=== PATIENT | male | born 1960 | race Caucasian/White ===

== ENCOUNTER → 2017-01-04 | Outpatient (CLI) | payer OTHER ==
[~2017-01-04] VITALS: Ht 182.9 cm; Wt 102.9 kg
[~2017-01-04] MED LIST: APAP500 PO; DICLOFENAC SODI75 MG PO; GRALISE600 MG PO; HYDROCODONE-AP1 EAC6 PO; LISINOPRIL-HCT1 EACH PO; MOBIC7.5 MG PO; SIMVASTATIN40 MG PO; VENLAFAXIN75 MG/1 T2 PO
--- NOTE | ~2017-01-04 | HPC ---
[facility] [address] [place] [address] PAIN MANAGEMENT CONSULTATION Name: CARROL CONNORS Room #: REG COURTNEYJanelle Irby#: [id number] Admission: 01/04/17 Attend Phys: Richardson Hollingsworth DO Discharge: Date of : 62 Report #: [id number] THIS REPORT FOR: //name// CC: Richardson Clement MD DATE OF SERVICE: 01/04/2017 REFERRING PHYSICIAN: Josesito Clement MD CHIEF COMPLAINT: Low back pain, left lower extremity pain and paresthesias. HISTORY OF PRESENT ILLNESS: As you know, the patient is an extremely pleasant 56-year-old male returning in followup visit with recurrent low back pain, left lower extremity pain with paresthesias. The patient is now placing pain score 04/10, states his pain is exacerbated with walking, exacerbates with activities throughout the day. It is constant in nature, aching, numbness and tingling when describing pain. He states pain medications and epidural injections have been successful, most recent provided 50% improvement in overall pain. He has returned today in followup visit requesting to undergo the next in a series of epidural injections to build on success of previous intervention. The patient denies any change in injury or trauma that may have led to recurrence of symptoms. He denies any change in his medical history since our last visit. ALLERGIES: No known drug allergies. CURRENT MEDICATIONS: Tylenol Extra Strength 500 mg 3 times a day, lisinopril/hydrochlorothiazide 10/12.5 mg once a day, diclofenac sodium 75 mg twice a day, venlafaxine 75 mg once a day, simvastatin 40 mg per day. SOCIAL HISTORY: The patient denies tobacco, alcohol, IV or illicit drug use. He is working, not receiving workmen's compensation, unaccompanied today. IMAGING: No new imaging available. PHYSICAL EXAMINATION: VITAL SIGNS: Blood pressure 136/91, pulse 66, respiratory rate 16, unlabored. The patient is 100% on room air, height 6 feet tall, weight 226.8 pounds, BMI calculated 30.8. GENERAL: Well developed, well nourished, well hydrated 56-year-old male appearing stated age, placing current pain score at 4/10. HEENT: Normocephalic, atraumatic. Pupils equal, round, reactive to light. Extraocular muscles are intact. Speech is fluent. EXTREMITIES: Show no clubbing, no cyanosis, no edema. MUSCULOSKELETAL: Lower extremity strength equal and symmetrical 5/5, intact to [address] [address] PAIN MANAGEMENT CONSULTATION Name: CARROL CONNORS Room #: REG [facility].#: [id number] Admission: 01/04/17 Attend Phys: Richardson Hollingsworth DO Discharge: Date of : 62 Report #: [id number] light touch from L1 through S2 dermatomes. Seated straight leg raising negative. Supine straight leg raising positive on the left. GARY's test negative. Muscle bulk and tone equal and symmetrical in lower extremities. ASSESSMENT: 1. Symptomatic lumbar radiculopathy. 2. Spinal stenosis of lumbar spine. 3. Displacement of lumbar intervertebral disk with radiculopathy. 4. Lumbosacral spondylosis with radiculopathy. 5. Chronic intractable pain. PLAN: 1. The patient has returned today in followup visit requesting to undergo epidural injection under fluoroscopic guidance. The patient was advised that third constitution party payer restrictions require that authorization be obtained before he could undergo next in the series of epidural injections. Given the 50% improvement in overall pain with previous injection and his consistent improvement over the past couple of years with injections, I believe he should continue with these injections. We will begin the authorization process immediately to obtain the next in the series of epidural injections. I did advise the patient this could take anywhere from 4-7 working days to begin the process immediately. Once we have this authorization, the patient will return to undergo epidural injection under fluoroscopic guidance to address lumbar radicular symptoms. 2. No medication changes were made at today's visit, the patient continue current medical therapy as previously prescribed. 3. The patient to return to our clinic once we have received precertification to undergo epidural injection under fluoroscopic guidance to build on success of the 50% improvement noted with the previous injection. By: [id number] Richardson Hollingsworth DO /nt
[2017-01-04 09:02] VITALS: BP 136/91
== END ==
LOC: PAIN 06:52
DX: M79.662 Pain in left lower leg (principal); M47.27 Other spondylosis with radiculopathy, lumbosacral region; M48.06 Spinal stenosis, lumbar region; M51.16 Intervertebral disc disorders with radiculopathy, lumbar region; F32.9 Major depressive disorder, single episode, unspecified

== ENCOUNTER → 2017-01-11 | Outpatient (CLI) | payer OTHER ==
[~2017-01-11] VITALS: Ht 182.9 cm; Wt 103.6 kg
--- NOTE | ~2017-01-11 | HPC ---
[facility] [place] [address] PAIN MANAGEMENT CONSULTATION Name: CARROL CONNORS Room #: REG Janelle Irby#: [id number] Admission: 01/11/17 Attend Phys: Richardson Hollingsworth DO Discharge: Date of : 62 Report #: [id number] THIS REPORT FOR: //name// CC: Richardson Clement MD DATE OF SERVICE: 01/11/2017 DATE OF SERVICE: 01/11/2017 CHIEF COMPLAINT: Low back pain, left lower extremity pain and paresthesias. HISTORY OF PRESENT ILLNESS: As you know, the patient is a very pleasant 56-year-old male returning in followup visit having received precertification to undergo epidural injection under fluoroscopic guidance. The patient is placing pain score today at 4/10. States the pain is constant in nature, aching, numbness and tingling in sensation, exacerbated with walking, standing, bending, improves with medications, stretching and epidural injections. He returns today in followup visit requesting to undergo next in the series of epidural injections. He has received precertification to do so. He denies injury or trauma that may have led to progression of symptoms. He has had no changes in medical history since our last visit of 01/04/2017. ALLERGIES: No known drug allergies. CURRENT MEDICATIONS: Simvastatin, venlafaxine, diclofenac, hydrochlorothiazide/lisinopril, acetaminophen. SOCIAL HISTORY: The patient denies tobacco, alcohol, IV or illicit drug use. He is working, not receiving workmen's compensation, unaccompanied today. PHYSICAL EXAMINATION: VITAL SIGNS: Blood pressure 134/90, pulse 65, respiratory rate 16, unlabored. The patient is 100% on room air, height 6 feet tall, weight 228.4 pounds, BMI calculated 31. GENERAL: Well-developed, well-nourished, well-hydrated 56-year-old male appearing stated age, placing current pain score at 4/10. HEENT: Normocephalic, atraumatic. Pupils equal, round, reactive to light. Extraocular muscles are intact. Sclerae nonicteric, without injection. EXTREMITIES: Show no clubbing, no cyanosis, no edema. MUSCULOSKELETAL: Lower extremity strength equal and symmetrical 5/5, remains intact to light touch from L1 through S2 dermatomes. Seated straight leg raising negative. Supine straight leg raising positive on the left. ASSESSMENT: [address] [address] PAIN MANAGEMENT CONSULTATION Name: CARROL CONNORS Room #: REG CLI [facility]#: [id number] Admission: 01/11/17 Attend Phys: Richardson Hollingsworth DO Discharge: Date of : 62 Report #: [id number] 1. Symptomatic lumbar radiculopathy. 2. Spinal stenosis of the lumbar spine. 3. Displacement of lumbar intervertebral disk with radiculopathy. 4. Lumbosacral spondylosis with radiculopathy. 5. Chronic intractable pain. PLAN: 1. The patient has returned today in followup visit requesting to undergo next in the series of epidural injections. We have received precertification for the patient to undergo the procedure. The patient was advised risks and benefits of the procedure, states he understood and wished to proceed. 2. The patient was provided refill prescription on his hydrocodone 5/325 one tab p.o. q. 8 hours p.r.n. for pain, #60, no refills. The patient is advised to take this medication only when pain is intolerable, not to rely on the medication prophylactically. PROCEDURE NOTE: DESCRIPTION OF PROCEDURE: Lumbar epidural steroid injection under fluoroscopic guidance. After obtaining written consent, the patient was taken back to fluoroscopy suite, placed in prone position with pillow under abdomen to decrease lumbar lordosis. Skin overlying lumbosacral area prepped and draped in aseptic fashion. Lumbar intervertebral spaces were identified by AP fluoroscopy. Skin and subcutaneous tissue overlying the target site of injection was anesthetized with 3 mL of 1% lidocaine. A #20-gauge 3-1/2 inch Tuohy needle advanced under fluoroscopic guidance towards the epidural space using a mid paramedian approach. Epidural space identified using loss of resistance to air technique. After negative aspiration for heme or cerebrospinal fluid, 1 mL of Omnipaque was injected. Lumbar epidurogram was confirmed using both AP and oblique fluoroscopy. After negative aspiration for heme or cerebrospinal fluid, 5 mL of a solution containing 2 mL 40 mg per mL, 80 mg total triamcinolone, 3 mL lidocaine 1% injected slowly. Needle retracted senior care, needle tract flushed 3 mL 1% lidocaine. Needle then removed. Sterile bandage placed over injection site. No new motor deficits present in the lower extremity following the procedure. The patient tolerated procedure well, carefully escorted to the recovery in stable condition. No apparent complication. After meeting discharge criteria, the patient discharged home. By: [id number] Richardson Hollingsworth DO /nt
[2017-01-11 08:57] VITALS: BP 134/90
== END ==
LOC: PAIN 07:03
DX: M47.27 Other spondylosis with radiculopathy, lumbosacral region (principal); M48.06 Spinal stenosis, lumbar region; G89.29 Other chronic pain

== ENCOUNTER → 2017-02-23 | Outpatient (CLI) | payer OTHER ==
[~2017-02-23] VITALS: Ht 182.9 cm; Wt 98.6 kg
--- NOTE | ~2017-02-23 | HPC ---
[facility] [place] [address] PAIN MANAGEMENT CONSULTATION Name: CARROL CONNORS Room #: REG DIEGO Hugo.#: [id number] Admission: 02/23/17 Attend Phys: Richardson Hollingsworth DO Discharge: Date of : 62 Report #: [id number] THIS REPORT FOR: //name// CC: Richardson Clement MD DATE OF SERVICE: 02/23/2017 REFERRING PHYSICIAN: Josesito Clement M.D. CHIEF COMPLAINT: Low back pain, left lower extremity pain with paresthesias. HISTORY OF PRESENT ILLNESS: As you know, the patient is a very pleasant 56-year-old male returning in followup visit to undergo epidural injection under fluoroscopic guidance. The patient is placing pain score around 4/10 with medications 7-10 without medications. He states pain is exacerbated with walking, standing, improves with medications, stretching, sitting, lying down and epidural injections. Most recent epidural injection provided 60% improvement in overall pain lasting up until just recently. He has had a slow and progressive return of symptoms without inciting injury or trauma. He has returned today requesting epidural injection to build on success of previous intervention. ALLERGIES: No known drug allergies. CURRENT MEDICATIONS: Hydrocodone, lisinopril, hydrochlorothiazide, Voltaren gel, venlafaxine, simvastatin. SOCIAL HISTORY: The patient denies tobacco, alcohol, IV or illicit drug use. He is working, not receiving workmen's compensation, unaccompanied today. IMAGING: No new imaging available. PHYSICAL EXAMINATION: VITAL SIGNS: Blood pressure 125/89, pulse 53, respiratory rate 14, unlabored. The patient is 100% on room air, height 6 feet tall, weight 217.4 pounds, BMI calculated 29.5. GENERAL: Well-developed, well-nourished, well-hydrated 56-year-old male appearing stated age, placing current pain score at approximately 4/10 with medications 7/10 without. HEENT: Normocephalic, atraumatic. Pupils equal, round, reactive to light. Extraocular muscles are intact. EXTREMITIES: Show no clubbing, no cyanosis, no edema. MUSCULOSKELETAL: Lower extremity strength is symmetrical 5/5, muscle bulk and tone equal and symmetrical, intact to light touch from L1 through S2 dermatomes. [address] [address] PAIN MANAGEMENT CONSULTATION Name: CARROL CONNORS [facility] [id number] Admission: 02/23/17 Attend Phys: Richardson Hollingsworth DO Discharge: Date of : 62 Report #: [id number] Ankle clonus negative. Babinski is negative. Gait is slightly antalgic favoring left lower extremity over right. Seated straight leg raising negative. Supine straight leg raising positive on the left. ASSESSMENT: 1. Symptomatic lumbar radiculopathy. 2. Spinal stenosis of the lumbar spine. 3. Displacement of lumbar intervertebral disk with radiculopathy. 4. Lumbosacral spondylosis with radiculopathy. 5. Chronic intractable pain. PLAN: 1. The patient has returned today in followup visit having noted about a 60% improvement in overall pain with the epidural injection provided at last visit. The patient is very pleased with response of the epidural injections in conjunction with medication management. He states that the combination makes it "possible for him to go about his activities." The patient has returned today in followup visit requesting this epidural injection in hopes of improving pain. He has been advised the risks and benefits of the procedure, states he understood and wished to proceed. 2. No medication changes were made at today's visit. The patient is to continue current medical therapy as previously prescribed. 3. The patient will return to our clinic on an as needed basis for possible epidural injection. PROCEDURE NOTE DESCRIPTION OF PROCEDURE: Lumbar epidural steroid injection under fluoroscopic guidance. After obtaining written consent, the patient was taken back to fluoroscopy suite, placed in prone position with pillow under abdomen to decrease lumbar lordosis. Skin overlying the lumbosacral area prepped and draped in aseptic fashion. Lumbar intervertebral spaces were identified by AP fluoroscopy. Skin and subcutaneous tissue overlying the target site of injection was anesthetized with 3 mL of 1% lidocaine. A 20-gauge 3-1/2 inch Tuohy needle advanced under fluoroscopic guidance towards the epidural space using a right paramedian approach. Epidural space identified using loss of resistance to air technique. After negative aspiration for heme or cerebrospinal fluid, 1 mL of Isovue was injected. Lumbar epidurogram was confirmed using both AP and lateral fluoroscopy. After negative aspiration for heme or cerebrospinal fluid, 5 mL of a solution containing 2 mL 40 mg per mL, 80 mg total triamcinolone, 3 mL lidocaine 1% injected slowly. Needle retracted intermediate, needle tract flushed 3 mL 1% lidocaine. Needle then removed. Sterile bandage placed over injection site. No new motor deficits present in the lower [facility] [address] [place] [address] PAIN MANAGEMENT CONSULTATION Name: CARROL CONNORS Room #: REG [facility] [id number] Admission: 02/23/17 Attend Phys: Richardson Hollingsworth DO Discharge: Date of : 62 Report #: [id number] extremity following the procedure. The patient tolerated procedure well, carefully escorted to the recovery in stable condition. No apparent complications. After meeting discharge criteria, the patient discharged home. By: [id number] Richardson Hollingsworth DO /nt
[2017-02-23 08:30] VITALS: BP 125/89
== END | disposition home or self-care (01) ==
LOC: PAIN 06:49
DX: M54.16 Radiculopathy, lumbar region (principal); M48.06 Spinal stenosis, lumbar region; M51.16 Intervertebral disc disorders with radiculopathy, lumbar region; M47.27 Other spondylosis with radiculopathy, lumbosacral region; G89.29 Other chronic pain

== ENCOUNTER → 2017-05-03 | Outpatient (CLI) | payer OTHER ==
[~2017-05-03] VITALS: Ht 182.9 cm; Wt 98.4 kg
--- NOTE | ~2017-05-03 | HPC ---
[facility] [place] [address] PAIN MANAGEMENT CONSULTATION Name: DORYCARROL Room #: REG DIEGO Irby#: [id number] Admission: 05/03/17 Attend Phys: Richardson Hollingsworth DO Discharge: Date of : 62 Report #: [id number] THIS REPORT FOR: //name// CC: Richardson Clement DATE OF SERVICE: 05/03/2017 CHIEF COMPLAINT: Low back pain, lower extremity pain with paresthesias, both left and right side. HISTORY OF PRESENT ILLNESS: As you know, the patient is a very pleasant 56-year-old male who returns today in followup visit with ongoing low back pain, now bilateral lower extremity pain with paresthesias. Originally, the patient was being seen for low back pain and left lower extremity pain. His pain has now progressed to involve the right side. He indicates pain level of 7/10, states pain is constant, aching, and sharp in sensation, exacerbated with walking and standing, improves with medications, stretching, sitting, and lying down. The patient has been referred back to our clinic to trial an epidural injection under fluoroscopic guidance. As you are aware, the patient has been undergoing evaluation at [facility] where he is determined to be a non-candidate per the new multifidus stimulating device. He has been advised he has fairly significant spinal stenosis by MRI, this is not available to us today. ALLERGIES: No known drug allergies. CURRENT MEDICATIONS: Hydrocodone, lisinopril, hydrochlorothiazide, Voltaren gel, venlafaxine, and simvastatin. SOCIAL HISTORY: The patient denies tobacco, alcohol, IV or illicit drug use. He is working, not receiving workmen's compensation, unaccompanied today. IMAGING: No new imaging available. PHYSICAL EXAMINATION: VITAL SIGNS: Blood pressure 124/84, pulse is 61, respiratory rate 14 and unlabored, the patient is 100% on room air, height 6 feet tall, weight 217 pounds, and BMI calculated 29.4. GENERAL: Well-developed, well-nourished, well-hydrated 56-year-old male. He appears his stated age. He is placing current pain score at 7/10. HEENT: Normocephalic, atraumatic. Pupils are equal, round, and reactive to light. Extraocular muscles are intact. Sclerae are nonicteric without injection. NEUROLOGIC: Cranial nerves 2-12 are grossly intact. Speech is fluent. EXTREMITIES: Show no clubbing, no cyanosis, and no edema. [facility] [address] [place] [address] PAIN MANAGEMENT CONSULTATION Name: CARROL CONNORS Room #: REG [facility]#: [id number] Admission: 05/03/17 Attend Phys: Richardson Hollingsworth DO Discharge: Date of : 62 Report #: [id number] MUSCULOSKELETAL: Lower extremity strength is symmetrical 5/5, intact to light touch from L1 through S2 dermatomes. Seated straight leg raising bilaterally. Supine straight leg raising positive bilaterally. Fabere's test negative. Seated straight leg and supine straight leg raising distribution follows the L5 dermatomal distribution bilaterally. ASSESSMENT: 1. Symptomatic lumbar radiculopathy. 2. Progressively worsening spinal stenosis of lumbar spine. 3. Lumbosacral spondylosis with radiculopathy. 4. Displacement of lumbar intervertebral disk with radiculopathy. 5. Chronic intractable pain. PLAN: 1. The patient returns today in followup visit having indicated he was completed his workup at [facility] where he was being evaluated for the new trial for the multifidus stimulating device. Apparently, his spinal stenosis is too great to allow him to participate in that study. He was advised at this time to follow up with his primary care physician, his pain physician and neurosurgery. He returns today in followup visit indicating a pain level of 7/10, states his pain is now involving both legs with increasing right leg pain over the past couple of weeks. He has denied injury or trauma that may have led to progression of symptoms. He has returned today in followup visit to undergo next in the series of epidural injections under fluoroscopic guidance in hopes of improving pain. The patient was advised the risks and benefits of a lumbar epidural injection. These risks include, but are not necessarily limited to bleeding, bruising, infection, worsening of pain, no relief of pain, also risk of temporary or permanent muscle weakness, temporary or permanent nerve damage, possible paralysis and . The patient states understood and wished to proceed. 2. No medication changes were made at today's visit, the patient to continue current medical therapy as previously prescribed. 3. The patient will obtain the imaging study from where they had him undergo an MRI of the lumbar spine. We have attempted to gain this information and have sent authorized release of information to remain HIPPA compliance, we have yet to receive any information, he is to follow up with the system to receive his disc, he will then review the findings once they are available. PROCEDURE NOTE DESCRIPTION OF PROCEDURE: L5-S1 right paramedian epidural steroid injection under fluoroscopic guidance. After obtaining written consent, the patient was taken back to fluoroscopy suite, placed in prone position with pillow under abdomen to decrease lumbar [address] [address] PAIN MANAGEMENT CONSULTATION Name: CARROL CONNORS Room #: REG CLJanelle Irby#: [id number] Admission: 05/03/17 Attend Phys: Richardson Hollingsworth DO Discharge: Date of : 62 Report #: [id number] lordosis. Skin overlying the lumbosacral area prepped and draped in aseptic fashion. The L5-S1 vertebral interspace was identified by AP fluoroscopy. Skin and subcutaneous tissue overlying target site of injection was anesthetized with 3 mL of 1% lidocaine. A 20-gauge 3-1/2-inch Tuohy needle advanced under fluoroscopic guidance towards the epidural space using a right paramedian approach. Epidural space identified using loss of resistance to air technique. After negative aspiration for heme or cerebrospinal fluid, 1 mL of Omnipaque was injected. Lumbar epidurogram was confirmed using both AP and lateral fluoroscopy. After negative aspiration for heme or cerebrospinal fluid, 5 mL of a solution containing 2 mL 40 mg per mL, 80 mg total triamcinolone, 3 mL lidocaine 1% injected slowly. Needle retracted usp, needle tract flushed with 3 mL 1% lidocaine. Needle then removed. Sterile bandage placed over injection site. No new motor deficits present in lower extremity following the procedure. The patient tolerated the procedure well, carefully escorted to the recovery room in stable condition. No apparent complications. After meeting discharge criteria, the patient discharged home. <ELECTRONICALLY SIGNED> By: Richardson Hollingsworth DO 05/09/17 [id number] Richardson Hollingsworth DO /nt
[2017-05-03 11:26] VITALS: BP 124/84
== END ==
LOC: PAIN 07:16
DX: M47.27 Other spondylosis with radiculopathy, lumbosacral region (principal); M48.06 Spinal stenosis, lumbar region; M51.16 Intervertebral disc disorders with radiculopathy, lumbar region; G89.29 Other chronic pain; Z79.899 Other long term (current) drug therapy

== ENCOUNTER → 2019-06-05 | Outpatient (CLI) | payer OTHER ==
[~2019-06-05] VITALS: Ht 182.9 cm; Wt 102.3 kg
[~2019-06-05] MED LIST changes: +ARIPIPRAZOLE2 MG PO; +MEDROLDOSEPACK PO; +NABUMETONE 750750 M1 PO
[2019-06-05 08:16] VITALS: BP 140/85
--- NOTE | 2019-06-05 08:32 | NUR ---
Pain Clinic Assessment: 1. History of Osteoarthritis: BACK History of Rheumatoid Arthritis: Not Applicable 2. Height: 6 ft. 0 in. 182.9 cm. Weight: 225.6 lb. oz. 102.332 kg. Patient's BMI: 30.6 3. Vital Signs: BP: 140/85 Pulse: 60 Resp: 16 Temp: 02 Sat: 100 ECG Mon: 4. Pain Intensity: 7-TODAY 5. Fall Risk: Dizziness: N Needs help standing or walking: N Fallen in the last 3 months: N Fall risk comments: 6. Patient on Blood Thinner: None 7. History of Hypertension: N 8. Opioid Therapy greater than 6 weeks: N Opiate Contract Signed: 9. Risk Assessment Tool Provided: LOW 10. Functional Assessment Tool: 11. Recreational Drug Use: Never Drug Type: Tobacco Use: Never Smoker Tobacco Type: Amount or Packs/day: How Many Years: Alcohol Use: Yes Frequency: Weekly Quant: 5-7
--- NOTE | 2019-06-12 13:41 | HPC ---
[facility] [place] [address] PAIN MANAGEMENT CONSULTATION Name: DORYCARROL Room #: REG DIEGO Irby#: [id number] Admission: 06/05/19 ������������������ Attend Phys: Richardson Hollingsworth DO Discharge: ������������������ Date of : 62 Report #: [id number] THIS REPORT FOR: //name// CC: Richardson Clement MD DATE OF SERVICE: 06/05/2019 CHIEF COMPLAINT: Axial back pain. HISTORY OF PRESENT ILLNESS: As you know, patient is a 58-year-old male who returns today in followup visit with recurrent axial back pain. As you are aware, patient has undergone extensive surgical revision in the lumbar spine with fusion at the L4-L5 level, but unfortunately he continues to experience pain over the facet joints at L5 and S1. We saw the patient in consultation at our [facility] office a week and a half ago where we began process of preauthorization for the patient to undergo bilateral L5-S1 intra-articular facet injections to determine if his symptoms would improve with such procedures. He returns to our clinic at [facility] as he was having difficulty scheduling appointments at our clinic at [facility]. He is placing pain today at around 7/10. He denies specific injury or trauma. He has changed his care to our [facility] office for convenience and for faster service. ALLERGIES: No known drug allergies. CURRENT MEDICATIONS: Simvastatin 40 mg per day, venlafaxine 75 mg once a day, lisinopril/hydrochlorothiazide 10/12.5 mg once a day, aripiprazole 2 mg once a day, nabumetone 750 mg twice a day. SOCIAL HISTORY: The patient denies tobacco, alcohol, IV or illicit drug use. He is working, not receiving workmen's compensation, unaccompanied today. IMAGING: No new imaging available. PHYSICAL EXAMINATION: VITAL SIGNS: Blood pressure 140/85, pulse 60, respiratory rate 16 and unlabored. The patient is 100% on room air, height 6 feet tall, weight 225.6 pounds, BMI calculated 30.6. GENERAL: Well-developed, well-nourished, well-hydrated 58-year-old male appearing stated age, pain is rated around 7/10. HEENT: Normocephalic, atraumatic. Pupils equal, round, reactive to light. EXTREMITIES: Show no clubbing, no cyanosis, no edema. MUSCULOSKELETAL: There is palpatory tenderness noted over the paraspinal musculature of lower lumbar spine. No spin[place] [address] PAIN MANAGEMENT CONSULTATION Name: CARROL CONNORS Room #: REG [facility] Mahamed#: [id number] Admission: 06/05/19 ������������������ Attend Phys: Richardson Hollingsworth DO Discharge: ������������������ Date of : 62 Report #: [id number] provocation testing is restricted due to pain and fusion. Pain is elicited over the L5-S1 facet joints bilaterally. Seated straight leg raising negative. Supine straight leg raising negative. ASSESSMENT: 1. Lumbosacral spondylosis without radiculopathy. 2. Facet arthropathy of the lumbar spine. 3. Chronic intractable pain. PLAN: 1. The patient has returned today in followup visit to our clinic at [facility] to undergo bilateral L5-S1 intra-articular facet injections in hopes of improving pain. We have taken the liberty of applying and have received authorization from the patient's third constitution party payer to undergo this procedure today. He has been advised risks and benefits of the procedure. These risks include but are not necessarily limited to bleeding, bruising, infection, worsening pain, no relief of pain, also risk of temporary or permanent muscle weakness, temporary or permanent nerve damage, possible paralysis and . The patient states understood and wished to proceed. 2. No medication changes made at today's visit. The patient will continue current medical therapy as previously prescribed. 3. We will see the patient back in followup visit in approximately 1 month to discuss efficacy of the bilateral L5-S1 intra-articular facet injections provided today. PROCEDURE NOTE DESCRIPTION OF PROCEDURE: Bilateral L5-S1 intra-articular facet injections under fluoroscopic guidance. This is the first procedure of the first series that the patient is undergoing. After obtaining written consent, the patient was taken back to the fluoroscopy suite and placed in a prone position with a pillow under the abdomen to decrease the lumbar lordosis and to facilitate needle entry into the facet joints. The skin overlying the lumbosacral area was prepped and draped in an aseptic fashion. AP and lateral fluoroscopic imaging was obtained. Optimal position of the fluoroscope occurred when the joint line was first visualized. The facet joints were identified radiographically directed adjacent to the superior articular process of the caudad vertebrae. The skin overlying the target site of injection was anesthetized using 3 mL of 1% lidocaine. A 22-gauge 3-1/2 inch spinal needle with a bent tip was advanced towards the L5-S1 facet joint on the right and left side under fluoroscopic guidance. The firm posterior capsule had its characteristic feel and the needle was advanced a few additional millimeters beyond the joint capsule into the joint space, but not [address] [address] PAIN MANAGEMENT CONSULTATION Name: CARROL CONNORS Room #: REG DIEGO Irby#: [id number] Admission: 06/05/19 ������������������ Attend Phys: Richardson Hollingsworth DO Discharge: ������������������ Date of : 62 Report #: [id number] into the articular cartilage. After the joint space was entered and aspiration was negative for heme or CSF, 0.2 mL of Omnipaque was injected demonstrating a characteristic facet arthrogram. After negative aspiration for heme or CSF, 1.5 mL of a solution containing 1 mL of 40 mg per mL, 40 mg total triamcinolone and 0.5 mL of bupivacaine 0.5% was slowly injected at each of 2 facets. The needle was then removed. There were no apparent complications. The patient tolerated the procedure well and was carefully escorted to the recovery room in stable condition. The VAS was 7/10 before the procedure and 5/10 ten minutes after the procedure. After meeting discharge criteria, the patient was discharged home. ��������������������������������������������� <ELECTRONICALLY SIGNED> ���������������������������������������� By: Richardson Hollingsworth DO ��������������������������������������������� 06/12/19 1341 [id number] [id number] Richardson Hollingsworth DO /nt
== END | disposition home or self-care (01) ==
LOC: PAIN 06:45
DX: M54.9 Dorsalgia, unspecified (principal); M47.817 Spondylosis without myelopathy or radiculopathy, lumbosacral region; M47.816 Spondylosis without myelopathy or radiculopathy, lumbar region; G89.29 Other chronic pain; Z79.899 Other long term (current) drug therapy; Z98.890 Other specified postprocedural states

== ENCOUNTER → 2020-01-29 | Outpatient (CLI) | payer OTHER ==
[~2020-01-29] VITALS: Ht 182.9 cm; Wt 99.2 kg
[~2020-01-29] MED LIST changes: +DICLOFENAC SOD50 M1 PO; +NABUMETONE 500500 M1 PO
[2020-01-29 08:44] VITALS: BP 131/75
--- NOTE | 2020-01-29 08:58 | NUR ---
Pain Clinic Assessment: 1. History of Osteoarthritis: BACK History of Rheumatoid Arthritis: Not Applicable 2. Height: 6 ft. 0 in. 182.9 cm. Weight: 218.8 lb. oz. 99.247 kg. Patient's BMI: 29.7 3. Vital Signs: BP: 131/75 Pulse: 53 Resp: 16 Temp: 02 Sat: 98 ECG Mon: 4. Pain Intensity: 4 5. Fall Risk: Dizziness: N Needs help standing or walking: N Fallen in the last 3 months: N Fall risk comments: 6. Patient on Blood Thinner: None 7. History of Hypertension: N 8. Opioid Therapy greater than 6 weeks: N Opiate Contract Signed: 9. Risk Assessment Tool Provided: LOW 10. Functional Assessment Tool: 11. Recreational Drug Use: Never Drug Type: Tobacco Use: Never Smoker Tobacco Type: Amount or Packs/day: How Many Years: Alcohol Use: Yes Frequency: Weekly Quant: VODKA 3 TIMES WEEKLY
--- NOTE | 2020-01-30 12:58 | HPC ---
[facility] [place] [address] PAIN MANAGEMENT CONSULTATION Name: CARROL CONNORS Room #: REG COURTNEYJanelle Irby#: [id number] Admission: 01/29/20 Attend Phys: Richardson Hollingsworth DO Discharge: Date of : 62 Report #: [id number] THIS REPORT FOR: cc: Josesito Clement MD, Randy MD Johnson, James E. DO ~ DATE OF SERVICE: 01/29/2020 CHIEF COMPLAINT: Axial back pain. HISTORY OF PRESENT ILLNESS: As you know, the patient is a very pleasant 59-year-old male who returns today in followup visit with recurrent axial back pain. The patient states his pain began about 3 weeks ago, progressively worsened. He denies specific injury or trauma. He is able to localize pain directly over the lower portion of the lumbar spine. The previous intra-articular facet injections provided at our visit of 05/31/2019 provided excellent benefit up to 80% improvement in overall pain lasting for nearly 2 months. Pain has slowly and progressively returned consistent with facet arthropathy noted at the L5-S1 level, the level just below his significant confusion. He returns today in followup visit to discuss treatment options for his recurrent 4/10 pain. He describes the pain as aching, shooting, constant, exacerbated with walking and standing, improves with medications, stretching sitting, lying down and exercise. ALLERGIES: No known drug allergies. CURRENT MEDICATIONS: Nabumetone 750 mg b.i.d., aripiprazole 2 mg once a day, lisinopril/hydrochlorothiazide 10/12.5 mg once a day, venlafaxine ER 75 mg per day, simvastatin 40 mg per day. SOCIAL HISTORY: The patient denies tobacco, alcohol or IV illicit drug use. He is working, not receiving workmen's compensation, unaccompanied today. IMAGING: No new imaging available. PHYSICAL EXAMINATION: VITAL SIGNS: Blood pressure 131/75, pulse 53, respiratory rate 16 and unlabored. The patient is 98% on room air, height 6 feet tall, weight 218.8 pounds and BMI calculated 29.7. GENERAL: Well-developed, well-nourished, well-hydrated, 59-year-old male. He appears stated age, pain is rated today at 4/10. HEENT: Normocephalic, atraumatic. Pupils equal, round, reactive to light. Extraocular muscles are intact. NEUROLOGIC: Speech fluent. The patient deemed a good historian. EXTREMITIES: Show no clubbing, no cyanosis, [place] [address] PAIN MANAGEMENT CONSULTATION Name: CARROL CONNORS Room #: REG [facility].#: [id number] Admission: 01/29/20 Attend Phys: Richardson Hollingsworth DO Discharge: Date of : 62 Report #: [id number] MUSCULOSKELETAL: Lower extremity strength equal and symmetrical 5/5. Muscle bulk and tone equal and symmetrical in comparing left lower extremity to right. Seated straight leg raising negative. Supine straight leg raising negative. Taniya's test is negative. Modified Gaenslen's positive for axial back pain. Ankle clonus negative. Babinski is negative. Well-healed surgical scars of the lumbar spine. Lumbar provocation testing is met with increasing pain, specifically with rotation and lateral flexion, which is showing severe restriction of motion and increasing pain over the lower facet joint bilaterally. ASSESSMENT: 1. Lumbosacral spondylosis without radiculopathy. 2. Facet arthropathy of the lumbar spine. 3. Chronic intractable pain. PLAN: 1. The patient returns today in followup visit with recurrence of axial back pain secondary to facet arthropathy at the L5-S1 neural facet joint. As you are aware, the patient has had fusion from L3 through L5, which has resolved most of the patient's lumbar radicular symptoms, but he continues to experience axial back pain due to facet arthropathy that is progressing at the L5-S1 level. The patient underwent intra-articular facet injections in the past, which gave excellent benefit in pain, lasting for nearly 2 months. He returns today in followup visit having indicated increased pain without inciting injury or trauma. The patient has undergone x-ray imaging, which do show advancing facet arthropathy at the L5-S1 level consistent with our diagnosis. Imaging was performed at [facility] and the patient that imaging with him today. After reviewing this imaging study and discussing the patient's case further, we decided to move forward with medial branch nerve blocks and radiofrequency lesioning. 2. The patient was advised that due to third democrat payer restrictions, authorization would have to be obtained before the patient could undergo medial branch nerve blocks with plan to undergo radiofrequency lesioning if successful. The patient is agreeable to undergo the procedure. We will make the patient an appointment back once we have this authorization to undergo L4 and L5 medial branch nerve blocks. If these are then successful, move forward with radiofrequency lesioning of those medial branch nerves in hopes of providing more prolonged benefit. The patient will await our phone contact to reschedule for the medial branch nerve blocks. 3. The patient was provided a prescription of nabumetone 500 mg dose 1 tab p.o. t.i.d. I have sent the patient the prescription with #90 tablets, 2 refills, 3 months' worth of medication. The patient will watch for dyspepsia, worsening of blood pressure, lower extremity edema with its use. If he notes any side effects, discontinue immediately. [facility] [address] [place] [address] PAIN MANAGEMENT CONSULTATION Name: CARROL CONNORS Room #: REG CLJanelle Irby#: [id number] Admission: 01/29/20 Attend Phys: Richardson Hollingsworth DO Discharge: Date of : 62 Report #: [id number] 4. We will see the patient back in followup visit for medial branch nerve blocks. <ELECTRONICALLY SIGNED> By: Richardson Hollingsworth DO 01/30/20 1258 0958 1152 Richardson Hollingsworth DO /nt
== END ==
LOC: PAIN 06:48
DX: M47.817 Spondylosis without myelopathy or radiculopathy, lumbosacral region (principal); M12.9 Arthropathy, unspecified; G89.29 Other chronic pain

== ENCOUNTER → 2020-01-30 | Outpatient (CLI) | payer OTHER ==
[~2020-01-30] VITALS: Ht 182.9 cm; Wt 98.4 kg
[2020-01-30 14:14] VITALS: BP 122/81
--- NOTE | 2020-01-30 14:25 | NUR ---
Pain Clinic Assessment: 1. History of Osteoarthritis: BACK History of Rheumatoid Arthritis: Not Applicable 2. Height: 6 ft. 0 in. 182.9 cm. Weight: 217.0 lb. oz. 98.431 kg. Patient's BMI: 29.4 3. Vital Signs: BP: 122/81 Pulse: 60 Resp: 16 Temp: 02 Sat: 100 ECG Mon: 4. Pain Intensity: 4 5. Fall Risk: Dizziness: N Needs help standing or walking: N Fallen in the last 3 months: N Fall risk comments: 6. Patient on Blood Thinner: None 7. History of Hypertension: N 8. Opioid Therapy greater than 6 weeks: N Opiate Contract Signed: 9. Risk Assessment Tool Provided: LOW 10. Functional Assessment Tool: 11. Recreational Drug Use: Never Drug Type: Tobacco Use: Never Smoker Tobacco Type: Amount or Packs/day: How Many Years: Alcohol Use: Yes Frequency: Quant:
--- NOTE | 2020-02-05 10:17 | HPC ---
[facility] [place] [address] PAIN MANAGEMENT CONSULTATION Name: CARROL CONNORS Room #: REG DIEGO Mahamed#: [id number] Admission: 01/30/20 Attend Phys: Richardson Hollingsworth DO Discharge: Date of : 62 Report #: [id number] THIS REPORT FOR: cc: Josesito Clement MD,Josesito Hollingsworth,Richardson Perdomo DO ~ DATE OF SERVICE: 01/30/2020 REFERRING PHYSICIAN: Josesito Clement MD CHIEF COMPLAINT: Axial back pain. HISTORY OF PRESENT ILLNESS: As you know, the patient is a 59-year-old male who returns today in followup visit having received authorization to undergo bilateral L4 and L5 medial branch nerve blocks in hopes of improving overall pain. The patient has undergone intra-articular facet injections at the L5-S1 level with good efficacy. As you are aware, the patient has had a fusion from L3 through L4 for which leaves the L5-S1 level to be the only area of the lumbar spine mobile. He has begun to experience increasing pain at this level. The intraarticular facet injection was quite beneficial, but we lost efficacy quite quickly. He returns today to begin the process of medial branch nerve blocks and possible radiofrequency lesioning. The patient places pain today at 4/10. ALLERGIES: No known drug allergies. CURRENT MEDICATIONS: See chart. SOCIAL HISTORY: The patient denies tobacco, alcohol, IV or illicit drug use. He is working, not receiving workmen's compensation, unaccompanied today. IMAGING: No new imaging available. PHYSICAL EXAMINATION: VITAL SIGNS: Blood pressure 122/81, pulse 60, respiratory rate 16 and unlabored. The patient is 100% on room air, height 6 feet tall, weight 217 pounds, BMI calculated 29.4. GENERAL: Well-developed, well-nourished, well-hydrated, 59-year-old male. He appears his stated age, pain is rated today 4/10. HEENT: Normocephalic, atraumatic. Pupils equal, round, reactive to light. EXTREMITIES: Show no clubbing, no cyanosis, and no edema. MUSCULOSKELETAL: Palpatory tenderness is noted over the paraspinal musculature of lower lumbar spine. No spinous process tenderness. There are well-healed surgical scars. Lumbar provocation testing including extension, rotation, lateral flexion all intensify axial back pain. Pain is slightly improved with forward flexion of the lumbar spine. [address] [address] PAIN MANAGEMENT CONSULTATION Name: CARROL CONNORS Room #: REG CLI Mahamed#: [id number] Admission: 01/30/20 Attend Phys: Richardson Hollingsworth DO Discharge: Date of : 62 Report #: [id number] ASSESSMENT: 1. Lumbosacral spondylosis without radiculopathy. 2. Facet arthropathy of the lumbar spine. 3. Intractable pain. PLAN: 1. The patient has returned today in followup visit having received authorization to undergo bilateral L4 and L5 medial branch nerve blocks to determine if moving towards radiofrequency lesioning would be an option for treatment to address his axial back pain. As you are aware, the patient has had a fusion from L3 through L5, leaving the L5-S1 facet joint the only mobile joint in the lower lumbar area. The patient had received excellent benefit with an intra-articular facet injection, but unfortunately symptoms returned. We have chosen to move forward with medial branch nerve blocks and possible radiofrequency lesioning. The patient has been advised risks and benefits of the procedure today, states he understood and wished to proceed. 2. No medication changes made at today's visit. The patient will continue current medical therapy as previously prescribed. 3. We will see the patient back in followup visit next week for possible next in the series of medial branch blocks, but depending on efficacy with today's procedure. PROCEDURE NOTE DESCRIPTION OF PROCEDURE: L4-5 bilateral medial branch nerve block #1. After obtaining written consent, the patient was taken to the fluoroscopy suite, placed in prone position with pillow under abdomen to decrease lumbar lordosis. The skin overlying lumbosacral area was then prepped and draped in aseptic fashion. The L5 transverse process corresponding to the L4 medial branch nerve was visualized under AP fluoroscopy. Skin and subcutaneous tissue overlying target site of injection was anesthetized with 1 mL of 1% lidocaine utilizing a 27-gauge 1-1/4 inch needle. Two 22-gauge 3-1/2 inch spinal needle with bent tips were advanced under fluoroscopic guidance using a superior to inferior, lateral to medial approach to the dorsal superior and medial aspect of the base of the transverse processes. The needles were then directed caudally to reach the target locations. Oblique view facilitated needle placement with properly positioned needles within the middle of the eye of the Merlin dog. At each site each needle rested on periosteum. After negative aspiration for heme, 0.5 mL of bupivacaine 0.5% was injected slowly. This was done to avoid forcing the solution away from the target points. Leadore were then removed. The L5 dorsal ramus block, both on the left and right side was performed using a slightly oblique approach under fluoroscopic guidance. We placed the needle within the groove between the sacral ala and the superior articular process of S1. The needles rested on periosteum. After negative aspiration for heme, 0.[address] [address] PAIN MANAGEMENT CONSULTATION Name: CARROL CONNORS Room #: REG [facility]#: [id number] Admission: 01/30/20 Attend Phys: Richardson Hollingsworth DO Discharge: Date of : 62 Report #: [id number] mL of bupivacaine 0.5% was injected slowly to avoid forcing the solution away from the target points. Needle was retracted senior care, flushed with 0.5 mL of bupivacaine 0.5%, then removed. Sterile bandage placed over each injection sites. The patient tolerated the procedure well, carefully escorted to recovery room in stable condition. No apparent complications. VAS before procedure 4/10, VAS 10 minutes after procedure 0/10. After meeting our discharge criteria, the patient discharged home. <ELECTRONICALLY SIGNED> By: Richardson Hollingsworth DO 02/05/20 1017 1531 1651 Richardson Hollingsworth DO /nt
== END | disposition home or self-care (01) ==
LOC: PAIN 07:00
DX: M47.817 Spondylosis without myelopathy or radiculopathy, lumbosacral region (principal); M47.816 Spondylosis without myelopathy or radiculopathy, lumbar region; G89.29 Other chronic pain; Z98.890 Other specified postprocedural states; Z79.899 Other long term (current) drug therapy

== ENCOUNTER → 2020-02-05 | Outpatient (CLI) | payer OTHER ==
[~2020-02-05] VITALS: Ht 182.9 cm; Wt 97.7 kg
[2020-02-05 14:06] VITALS: BP 133/86
--- NOTE | 2020-02-05 14:17 | NUR ---
Pain Clinic Assessment: 1. History of Osteoarthritis: BACK History of Rheumatoid Arthritis: Not Applicable 2. Height: 6 ft. 0 in. 182.9 cm. Weight: 215.4 lb. oz. 97.705 kg. Patient's BMI: 29.2 3. Vital Signs: BP: 133/86 Pulse: 56 Resp: 14 Temp: 02 Sat: 100 ECG Mon: 4. Pain Intensity: 4 5. Fall Risk: Dizziness: N Needs help standing or walking: N Fallen in the last 3 months: N Fall risk comments: 6. Patient on Blood Thinner: None 7. History of Hypertension: N 8. Opioid Therapy greater than 6 weeks: N Opiate Contract Signed: 9. Risk Assessment Tool Provided: LOW 10. Functional Assessment Tool: 11. Recreational Drug Use: Never Drug Type: Tobacco Use: Never Smoker Tobacco Type: Amount or Packs/day: How Many Years: Alcohol Use: Yes Frequency: Quant:
--- NOTE | 2020-02-06 15:41 | HPC ---
[facility] [place] [address] PAIN MANAGEMENT CONSULTATION Name: CARROL CONNORS Room #: REG DIEGO Mahamed#: [id number] Admission: 02/05/20 Attend Phys: Richardson Hollingsworth DO Discharge: Date of : 62 Report #: [id number] THIS REPORT FOR: cc: Josesito Clement MD,Josesito Hollingsworth,Richardson Perdomo DO ~ DATE OF SERVICE: 02/05/2020 REFERRING PHYSICIAN: Josesito Clement MD CHIEF COMPLAINT: Axial back pain. HISTORY OF PRESENT ILLNESS: As you know, the patient is a 59-year-old male who returns today in followup visit having undergone medial branch blocks at our last visit, which gave 80% improvement in overall pain lasting for nearly 4 hours. The patient was able to return to the majority of his activities of daily living without significant pain interference. He returns today in followup visit to undergo the second in the series of these injections. If these are then successful, move forward with radiofrequency lesioning of the medial branch nerves at the level of the L5-S1 facet joints to addressing the L4 and L5 medial branch nerves bilaterally. The patient reports today pain level of 4/10. ALLERGIES: No known drug allergies. CURRENT MEDICATIONS: See chart. SOCIAL HISTORY: The patient denies tobacco, alcohol, IV or illicit drug use. He is working, not receiving workmen's compensation, unaccompanied today. IMAGING: No new imaging available. PHYSICAL EXAMINATION: VITAL SIGNS: Blood pressure 133/86, pulse 56, respiratory rate 14 and unlabored. The patient is 100% on room air, height 6 feet tall, weight 215.4 pounds, BMI calculated 29.2. GENERAL: Well-developed, well-nourished, well-hydrated, 59-year-old male. He appears stated age, pain is rated around 4/10. HEENT: Normocephalic, atraumatic. Pupils equal, round, reactive to light. Speech fluent. EXTREMITIES: Show no clubbing, no cyanosis, no edema. MUSCULOSKELETAL: The patient has paraspinal muscle tenderness. No spinous process tenderness. Seated straight leg raising is negative. Supine straight leg raising is negative. Taniya's test is negative. Modified Gaenslen's is positive for axial low back pain. Ankle clon[place] [address] PAIN MANAGEMENT CONSULTATION Name: CARROL CONNORS Room #: REG DIEGO Irby#: [id number] Admission: 02/05/20 Attend Phys: Richardson Hollingsworth DO Discharge: Date of : 62 Report #: [id number] negative. ASSESSMENT: 1. Lumbosacral spondylosis without radiculopathy. 2. Facet arthropathy of the lumbar spine. 3. Chronic axial back pain. 4. Chronic intractable pain. PLAN: 1. The patient returns today in followup visit having completed medial branch blocks at our last visit, which provided 80% improvement in overall pain lasting for almost 4 hours. He was able to return to the majority of his activities of daily living without significant pain interference. He returns today in followup visit to undergo second in the series of injections in hopes of improving symptoms. If this is unsuccessful, move forward with scheduling of a permanent radiofrequency lesioning of the L4 and L5 medial branch nerves bilaterally. The patient was advised risks and benefits of the second in the series of injection, states he understood and wished to proceed. 2. No medication changes made at today's visit. The patient will continue current medical therapy as prior prescribed. 3. We will see the patient back in followup visit to undergo radiofrequency lesioning once we have achieved authorization and can schedule the appointment. There are restrictions in regards to radiofrequency lesioning at this time due to COVID-19 virus regulations. Once these restrictions and regulations have been relaxed, we will schedule the patient to undergo the radiofrequency lesioning. DESCRIPTION OF PROCEDURE: Bilateral L4 and L5 medial branch nerve blocks. After obtaining written consent, the patient was taken back to fluoroscopy suite, placed in prone position with pillow under abdomen to decrease lumbar lordosis. Skin overlying lumbosacral area then prepped and draped in aseptic fashion. The L4-L5 transverse process corresponding the L4 medial branch nerves were visualized under direct AP fluoroscopy. Skin and subcutaneous tissue overlying target site of injection was then anesthetized with 1 mL of 1% lidocaine at each site utilizing a 27-gauge 1-1/4 inch needle. Two 22-gauge, 3-1/2 inch spinal needles with bent tips were advanced under fluoroscopic guidance using a superior, inferior, lateral to medial approach to the dorsal superior and medial aspect of the base of the transverse processes. The needles were then directed caudally to reach their target locations. Oblique view facilitated needle placement with properly positioned needles within the middle of the eye of the Scottie dog. At each site, needles rested on periosteum. After negative aspiration for heme, 1 mL of lidocaine 2% with 1:200,000 epinephrine was injected slowly. This was done slowly to avoid forcing the solution away from the target sites of injections. Winston were then removed. The L5 dorsal ramus block both on the left and right side was performed using a [facility] [address] [place] [address] PAIN MANAGEMENT CONSULTATION Name: CARROL CONNORS Room #: REG CLJanelle Irby#: [id number] Admission: 02/05/20 Attend Phys: Richardson Hollingsworth DO Discharge: Date of : 62 Report #: [id number] slightly oblique approach under fluoroscopic guidance. We placed the needle within the groove between the sacral ala and the superior articular process of S1. Winston rested on periosteum. After negative aspiration for heme, 1 mL of lidocaine 2% with 1:200,000 epinephrine was injected slowly to avoid forcing the solution away from the target sites. Winston were then retracted intermediate, flushed with 0.5 mL of lidocaine 1% and removed. Sterile bandage placed over injection sites. The patient tolerated procedure well, carefully escorted to recovery room in stable condition. No apparent complications. VAS before procedure 4/10, VAS 10 minutes after was 2/10. After meeting our discharge criteria, the patient discharged home. <ELECTRONICALLY SIGNED> By: Richardson Hollingsworth DO 02/06/20 1541 [id number] Richardson Hollingsworth DO /nt
== END | disposition home or self-care (01) ==
LOC: PAIN 06:55
DX: M47.817 Spondylosis without myelopathy or radiculopathy, lumbosacral region (principal); M47.816 Spondylosis without myelopathy or radiculopathy, lumbar region; M54.9 Dorsalgia, unspecified; G89.29 Other chronic pain; Z98.890 Other specified postprocedural states; Z79.899 Other long term (current) drug therapy

== ENCOUNTER → 2020-02-12 | Outpatient (CLI) | payer OTHER ==
[~2020-02-12] VITALS: Ht 182.9 cm; Wt 97.5 kg
[2020-02-12 13:44] VITALS: BP 114/74
--- NOTE | 2020-02-12 13:52 | NUR ---
Pain Clinic Assessment: 1. History of Osteoarthritis: BACK History of Rheumatoid Arthritis: Not Applicable 2. Height: 6 ft. 0 in. 182.9 cm. Weight: 215.0 lb. oz. 97.524 kg. Patient's BMI: 29.2 3. Vital Signs: BP: 114/74 Pulse: 60 Resp: 16 Temp: 02 Sat: 99 ECG Mon: 4. Pain Intensity: 5 5. Fall Risk: Dizziness: N Needs help standing or walking: N Fallen in the last 3 months: N Fall risk comments: 6. Patient on Blood Thinner: None 7. History of Hypertension: N 8. Opioid Therapy greater than 6 weeks: N Opiate Contract Signed: 9. Risk Assessment Tool Provided: LOW 10. Functional Assessment Tool: 11. Recreational Drug Use: Never Drug Type: Tobacco Use: Never Smoker Tobacco Type: Amount or Packs/day: How Many Years: Alcohol Use: Yes Frequency: Weekly Quant: BEER/LIQUOR
--- NOTE | 2020-02-13 12:32 | HPC ---
[facility] [place] [address] PAIN MANAGEMENT CONSULTATION Name: CARROL CONNORS Room #: REG DIEGO Mahamed#: [id number] Admission: 02/12/20 Attend Phys: Richardson Hollingsworth DO Discharge: Date of : 62 Report #: [id number] THIS REPORT FOR: cc: Josesito Clement MD,Richardson Storey MD, DO ~ DATE OF SERVICE: 02/12/2020 REFERRING PHYSICIAN: Dr. Josesito Clement CHIEF COMPLAINT: Axial back pain. HISTORY OF PRESENT ILLNESS: As you know, the patient is a pleasant 59-year-old male who has completed medial branch blocks x 2 over the past 2 weeks. He received excellent benefit with each of the medial branch blocks. He reports near 100% improvement in overall pain with the first injection lasting for hours, the second lasting for about 2 hours, which is typical for the medications used. He returns today in followup visit having completed the medial branch block successfully to move on with radiofrequency lesioning of the L4 and L5 medial branch nerves bilaterally. He is placing pain today at a level of about 5/10. ALLERGIES: No known drug allergies. CURRENT MEDICATIONS: See chart. SOCIAL HISTORY: The patient denies tobacco, alcohol or IV illicit drug use. He is working, not receiving workmen's compensation, unaccompanied today. IMAGING: No new imaging available. PHYSICAL EXAMINATION: VITAL SIGNS: Blood pressure 114/74, pulse is 60, respiratory rate 16 and unlabored. The patient is 99% on room air, height 6 feet tall, weight 215 pounds, BMI calculated 29.2. GENERAL: Well-developed, well-nourished, well-hydrated 59-year-old male. He is appearing his stated age. Pain is rated today 5/10. HEENT: Normocephalic, atraumatic. Pupils equal, round, reactive to light. Speech fluent. EXTREMITIES: Show no clubbing, no cyanosis, no edema. MUSCULOSKELETAL: Lower extremity strength equal and symmetrical 5/5, intact to light touch from L1 through S2 dermatomes. Seated straight leg raising negative. Supine straight leg raising negative. Taniya's test is negative. Modified Gaenslen's positive for axial low back pain. Ankle clonus negative. Babinski is negative. Palpatory tenderness over the paraspinal musculature of [address] [address] PAIN MANAGEMENT CONSULTATION Name: CARROL CONNORS Room #: REG COURTNEYJanelle Irby#: [id number] Admission: 02/12/20 Attend Phys: Richardson Hollingsworth DO Discharge: Date of : 62 Report #: [id number] lower lumbar spine. No spinous process tenderness. Well-healed surgical scar. ASSESSMENT: 1. Lumbosacral spondylosis without radiculopathy. 2. Facet arthropathy of the lumbar spine. 3. Chronic axial back pain. 4. Chronic intractable pain. PLAN: 1. The patient returns today in followup visit having completed medial branch block successfully over the past 2 weeks. He received excellent benefit with the first injection reporting 80% improvement in overall pain lasting for nearly 4 hours. The second injection provided last week gave 100% improvement in overall pain lasting for nearly 2 hours. He returns today in followup visit to undergo radiofrequency lesioning as he has successfully completed the medial branch blocks with a normal response. The patient has been advised the risks and benefits of the radiofrequency lesioning procedure. These risks include but are not necessarily limited to bleeding, bruising, infection, worsening pain, no relief of pain, also risk of temporary or permanent muscle weakness, temporary or permanent nerve damage, possible paralysis and . The patient states understood and wished to proceed. 2. No medication changes made at today's visit. The patient will continue current medical therapy as previously prescribed. 3. We will see the patient back in followup visit on an as needed basis to discuss treatment options. We are hopeful the patient will see good and prolonged benefit with today's radiofrequency lesioning. PROCEDURE NOTE. DESCRIPTION OF PROCEDURE: Bilateral L4 and L5 radiofrequency lesionings of the medial branch nerves. The procedure was explained. Informed consent was obtained from the patient. The patient was informed of the risks of the procedure including infection, bleeding, nerve damage, failure to produce pain relief and postoperative discomfort lasting for several weeks. The patient was then taken back to fluoroscopy suite, placed in prone position with pillow under the abdomen to decrease lumbar lordosis. Skin overlying lumbosacral area then prepped and draped in aseptic fashion. AP imaging of the lumbar spine was used to identify the L2 through L5 vertebral bodies and the sacral ala. The target locations bilaterally were established. The L5 transverse process corresponding the L4 medial branch nerve and the sacral ala corresponding to the L5 medial branch nerve were established. Using a 25-gauge 1-1/4 inch needle, skin wheals were placed at each site with 1 mL of 1% lidocaine. We were careful to only anesthetize the skin and not the deep [facility] [address] [place] [address] PAIN MANAGEMENT CONSULTATION Name: CARROL CONNORS Room #: REG [facility] Hugo#: [id number] Admission: 02/12/20 Attend Phys: Richardson Hollingsworth DO Discharge: Date of : 62 Report #: [id number] tissue. Two radiofrequency lesioning needles were advanced under fluoroscopic guidance using a superior to inferior, medial to lateral approach to the dorsal superior and medial aspect of the base of the L5 transverse processes. Lawtons were then directed caudally to reach the target locations. Oblique view facilitated needle placement with properly positioned needles within the middle of the eye of the Merlin dog. At each site, needles rested on periosteum. Touching bone initially assured the needles were not placed too deeply. Radiofrequency lesioning of the L5 medial branch nerve on the left and right side was performed using a superior to inferior, lateral to medial approach under fluoroscopic guidance, placing the needle within the groove between the sacral ala and the superior articular process of S1. Lawtons rested on periosteum. Stimulation was performed at each level once the cannulas were in position. Sensory stimulation was performed at 0.3, 0.4, 0.3 and 0.3 with impedance of 315, 241, 250 and 228 at 50 Hz for the bilateral L4 and L5 medial branch nerves respectively. Good stimulation of the lumbar and buttock region was elicited indicating correct alignment with the posterior primary ramus. Absence of lower motor fasciculation was noted at 3 volts 2 Hz stimulation during testing of the L4 and L5 medial branch nerves bilaterally. After affirmation of dissociation between sensory and motor stimulation, negative aspiration noted for heme or cerebrospinal fluid at each level. Next, 1 mL bupivacaine 0.5% was injected. After a 90-second delay, lesions were performed at a temperature of 80 degrees Celsius for 90 seconds. Lawtons were then allowed to cool and then 1 mL of a solution containing 2 mL 40 mg per mL, 80 mg total triamcinolone and 2 mL bupivacaine 0.5% injected slowly. Lawtons were retracted prison, flushed with 1 mL of 1% lidocaine and removed. Sterile bandage was placed over injection site. The patient was able to move all 4 extremities purposefully after procedure. The patient tolerated the procedure well, carefully escorted to recovery room in stable condition. No apparent complications. VAS before procedure rated at 5/10, VAS after procedure 0/10. After meeting our discharge criteria, the patient discharged home. <ELECTRONICALLY SIGNED> By: Richardson Hollingsworth DO 02/13/20 1232 1659 1924 Richardson Hollingsworth DO /nt
== END | disposition home or self-care (01) ==
LOC: PAIN 06:54
DX: M47.817 Spondylosis without myelopathy or radiculopathy, lumbosacral region (principal); M47.816 Spondylosis without myelopathy or radiculopathy, lumbar region; M54.9 Dorsalgia, unspecified; G89.29 Other chronic pain; Z98.890 Other specified postprocedural states; Z79.899 Other long term (current) drug therapy

== ENCOUNTER → 2020-07-01 | Outpatient (CLI) | payer OTHER ==
[~2020-07-01] VITALS: Ht 182.9 cm; Wt 96.0 kg
[~2020-07-01] MED LIST changes: +LYRICA 75 MG CA75 MG PO
--- NOTE | ~2020-07-01 | HPC ---
[facility] [address] [place] [address] PAIN MANAGEMENT CONSULTATION Name: CARROL CONNORS Room #: REG DIEGO Irby#: [id number] Admission: 07/01/20 Attend Phys: Richardson Hollingsworth DO Discharge: Date of : 62 Report #: [id number] CC: Richardson Clement MD DATE OF SERVICE: 07/01/2020 REFERRING PHYSICIAN: Dr. Josesito Clement. CHIEF COMPLAINT: Low back pain, left lower extremity pain with paresthesias. HISTORY OF PRESENT ILLNESS: As you know, the patient is a very pleasant 59-year-old male who has returned today in followup visit with recurrence of low back pain, left lower extremity pain with paresthesias. The patient states he was doing very well. After limiting some of his daily activities and adjusting his lifestyle and undergoing surgery to address his lumbar radiculopathy secondary to central canal stenosis. Unfortunately, the patient had to assist his daughter in a recent move and this has led to increasing back pain, left lower extremity pain and paresthesias. He returns today in followup visit reporting that since we last saw him, he underwent an emergency appendectomy as he had a perforated appendix that led to emergent surgery and complications of infection. While undergoing treatment for this, it was also noted the patient had suffered a pulmonary embolus and was started on Xarelto. He remains on this medication. He has been on the medication for approximately 4 days. He returns today in followup visit to discuss treatment options, reporting pain score of 3-8/10 involving low back and left lower extremity. ALLERGIES: No known drug allergies. CURRENT MEDICATIONS: Xarelto 25 mg once a day, simvastatin 40 mg per day, venlafaxine 75 mg once a day, lisinopril/hydrochlorothiazide 10/12.5 mg once a day, aripiprazole 20 mg per day, and diclofenac gel applied topically up to 3 times a day. SOCIAL HISTORY: The patient denies tobacco, alcohol, IV or illicit drug use. He is working, not receiving workmen's compensation, unaccompanied today. IMAGING: No new imaging available. PHYSICAL EXAMINATION: VITAL SIGNS: Blood pressure 137/88, pulse is 60, respiratory rate 14 and unlabored. The patient is 99% on room air, height 6 feet tall, weight 211.6 pounds, BMI calculated 28.7. GENERAL: Well-developed, well-nourished, well-hydrated 59-year-old male appearing his stated age. He is placing current pain score at anywhere from 3-9/10. HEENT: Normocephalic, atraumatic. Pupils equal, round and reactive to light. Extraocular muscles are intact. NEUROLOGIC: Speech is fluent. The patient deemed an excellent historian. LUNGS: Clear, no wheeze, rhonchi or rales. CARDIOVASCULAR: Regular. No appreciable gallop or rub. EXTREMITIES: Show no clubbing, no cyanosis, no edema. MUSCULOSKELETAL: Lower extremity strength appears symmetrical 5/5. Muscle bulk and tone is equal and symmetrical when comparing lower extremities. Seated straight leg raising is mildly positive left. Supine straight leg raising is positive on the left. Taniya's test is negative. Modified Gaenslen's positive for axial low back pain. Well-healed surgical scars over the lumbar spine. Deep tendon reflexes equal and symmetrical at patella and Achilles. ASSESSMENT: 1. Symptomatic lumbar radiculopathy. 2. Lumbosacral spondylosis with radiculopathy. 3. Recurrent back pain. 4. Chronic intractable pain. PLAN: 1. The patient returns today in followup visit having noted a recurrence of low back pain, left lower extremity pain after moving his daughter. He was doing fairly well prior to this issue. He is experiencing only intermittent pain with increased activities. He adjusted his lifestyle and symptoms continue to improve. As you are aware, the patient underwent surgery, which corrected his central canal stenosis issues and he was doing fairly well after that surgery. Unfortunately, he exacerbated symptoms involving low back and left lower extremity while assisting his daughter moving. He returns today in followup visit to discuss treatment options. The patient reports that he has just started Xarelto about 4 days ago. I have advised the patient that this precludes us from providing the requested epidural injection as he must be off the Xarelto for at least 3 days prior to any type of neural axial blockade including epidural injections. The patient has been advised he cannot come off this medication for 6 months, unless it is an emergency. He just started the medication 4 days ago and thus we cannot provide epidural injection without him off this therapy. He can discuss this with the prescribing physician if they wish to take the risk of having the patient off this medication for an epidural injection; I would be more than willing to assist in providing the injection in a timely manner. 2. We recommend at this point, the patient trial a Medrol Dosepak. I have given the patient 1 pack to take as directed. He is to follow the directions on how to take the medication. This should help with his current pain. 3. We have provided the patient with a prescription for Lyrica 75 mg dose. He is to begin 1 tab p.o. at bedtime for 7 nights. If no improvement in symptoms, no side effects of sleepiness, disorientation, confusion, mental slowing, then increase to 2 tabs p.o. at bedtime. He was given #60 tablets with no refills. The patient was advised to trial of medication. If he does find benefit he can contact our clinic for further prescriptions. 4. The patient will contact our clinic in regards to his Xarelto therapy. If he is able to discontinue the therapy, we would be more than willing to see the patient back in followup visit for an epidural injection. We are hopeful that the medication adjustments made today will be beneficial. It was noted on today's evaluation, the patient indicated he was taking anti-inflammatories with the Xarelto. I have advised him against this as it is a contraindication. He will discontinue this activity. I have requested the patient to call us back in the next couple of days to advise us of the efficacy of the changes made today. By: [id number] Richardson Hollingsworth DO /janice
[2020-07-01 13:15] VITALS: BP 137/88
--- NOTE | 2020-07-01 13:24 | NUR ---
Pain Clinic Assessment: 1. History of Osteoarthritis: BACK History of Rheumatoid Arthritis: Not Applicable 2. Height: 6 ft. 0 in. 182.9 cm. Weight: 211.6 lb. oz. 95.981 kg. Patient's BMI: 28.7 3. Vital Signs: BP: 137/88 Pulse: 60 Resp: 14 Temp: 02 Sat: 99 ECG Mon: 4. Pain Intensity: 3; 8-9 AT WORST 5. Fall Risk: Dizziness: N Needs help standing or walking: N Fallen in the last 3 months: N Fall risk comments: 6. Patient on Blood Thinner: XARELTO 7. History of Hypertension: N 8. Opioid Therapy greater than 6 weeks: N Opiate Contract Signed: 9. Risk Assessment Tool Provided: LOW 10. Functional Assessment Tool: 11. Recreational Drug Use: Never Drug Type: Tobacco Use: Never Smoker Tobacco Type: Amount or Packs/day: How Many Years: Alcohol Use: Yes Frequency: Quant:
== END ==
LOC: PAIN 06-03 08:54
PROVIDERS: ATTEND Anesthesiology Pain Medicine
DX: M47.27 Other spondylosis with radiculopathy, lumbosacral region (principal); G89.29 Other chronic pain; M79.605 Pain in left leg; R20.2 Paresthesia of skin

== ENCOUNTER → 2021-01-13 | Outpatient (CLI) | payer OTHER ==
[~2021-01-13] VITALS: Ht 182.9 cm; Wt 103.2 kg
--- NOTE | ~2021-01-13 | HPC ---
[facility] [place] [address] PAIN MANAGEMENT CONSULTATION Name: CARROL CONNORS Room #: REG DIEGO Mahamed#: [id number] Admission: 01/13/21 Attend Phys: Richardson Hollingsworth DO Discharge: Date of : 62 Report #: [id number] THIS REPORT FOR: cc: Josesito Clement MD, Randy MD Johnson, James E. DO ~ DOC #: [id number] cc: MD Richardson Carrillo, DATE OF SERVICE: 01/13/2021 CHIEF COMPLAINT: Low back pain, left buttock pain. HISTORY OF PRESENT ILLNESS: As you know, the patient is a very pleasant 60-year-old male, who returns today in followup visit with recurrence of low back pain and left buttock pain. The patient reports that the pain he has currently was completely resolved with radiofrequency lesioning of the medial branch nerves of the lumbar spine performed in 01/2020. Unfortunately, his symptoms have begun to return. He localizes pain over the lumbar region consistent with facet arthropathy from the L4-L5, L5-S1 level on the left. The patient did very well with previous radiofrequency lesioning and returned today to discuss the possibility of undergoing repeat radiofrequency lesioning of that area. He has had complete resolution of his right low back symptoms, which have yet to recur. He is placing pain today around 6-7/10 depending on activity. There has been no injury or trauma that led to symptom recurrence. As you are aware, the patient had an instrumented fusion of the L4-L5 level, but this left him with progressively worsening facet arthropathy in the lower lumbar region, for which he has done very well with radiofrequency lesioning in the past. He returns to discuss left low back and buttock pain. ALLERGIES: No known drug allergies. CURRENT MEDICATIONS: Lisinopril, venlafaxine, simvastatin and Abilify. SOCIAL HISTORY: The patient denies tobacco, alcohol or IV or illicit drug use. He is working, not receiving workmen's compensation, unaccompanied today. IMAGING: No new imaging available. PHYSICAL EXAMINATION: VITAL SIGNS: Blood pressure 126/87, pulse is 58, respiratory rate 16 and unlabored. The patient is 99% on room air, height 6 feet tall, weight 227.6 pounds, BMI calculated 30.9. GENERAL: Well-developed, well-nourished, well-hydrated 60-year-old male appearing stated age. Pain is rated anywhere from 6-7/10. HEENT: Normocephalic, atraumatic. Pupils are round. Extraocular muscles are [address] [address] PAIN MANAGEMENT CONSULTATION Name: CARROL CONNORS Room #: REG DIEGO Irby#: [id number] Admission: 01/13/21 Attend Phys: Richardson Hollingsworth DO Discharge: Date of : 62 Report #: [id number] intact. He is wearing a mask in compliance with COVID-19 regulations. EXTREMITIES: Show no clubbing, no cyanosis, no edema. MUSCULOSKELETAL: Seated straight leg raising negative. Supine straight leg raising is negative. Taniya's test is negative. Modified Gaenslen's positive for axial low back pain on the left, negative on right. Palpatory tenderness is noted over the paraspinal musculature of the left lower lumbar area. Well-healed surgical scars noted. ASSESSMENT: 1. Lumbosacral spondylosis without radiculopathy. 2. Facet arthropathy of the lumbar spine. 3. Recurrent low back pain. 4. Chronic intractable pain. PLAN: 1. The patient returns today in followup visit having noted excellent benefit with radiofrequency lesioning performed in January of last year. He has had complete resolution of his right low back pain, but unfortunately his left lower back pain has recurred. He is able to localize pain over the facet joint at L4-L5 and L5-S1 consistent with his distribution of symptoms and the findings on imaging studies in the past. We have discussed with the patient repeating medial branch nerve block to address left-sided back and buttock pain. If this completely resolves his symptoms, then move forward with radiofrequency lesioning. The patient was agreeable with this plan. He wishes to begin the authorization process. 2. We will begin the authorization process for medial branch block to address the L4 and L5 medial branch nerves on the left side. If these are then successful at alleviating his symptoms, we would recommend moving forward with radiofrequency lesioning. The patient is agreeable with this plan. We will begin the authorization process and have him return as quickly as possible to undergo the medial branch blocks. Again if they are successful, move forward with radiofrequency lesioning. 3. No medication changes made at today's visit. The patient will continue current medical therapy as prior prescribed. 4. We will see the patient back in followup visit once we have achieved authorization to undergo the medial branch nerve blocks and progression towards radiofrequency lesioning. DO BALDEV Molina/JORGE LUIS [address] [address] PAIN MANAGEMENT CONSULTATION Name: CARROL CONNORS Room #: REG DIEGO Irby#: [id number] Admission: 01/13/21 Attend Phys: Richardson Hollingsworth DO Discharge: Date of : 62 Report #: [id number] By: [id number] Richardson Hollingsworth DO /nt
[2021-01-13 10:11] VITALS: BP 126/87
--- NOTE | 2021-01-13 10:35 | NUR ---
Pain Clinic Assessment: 1. History of Osteoarthritis: BACK History of Rheumatoid Arthritis: Not Applicable 2. Height: 6 ft. 0 in. 182.9 cm. Weight: 227.6 lb. oz. 103.239 kg. Patient's BMI: 30.9 3. Vital Signs: BP: 126/87 Pulse: 58 Resp: 16 Temp: 02 Sat: 99 ECG Mon: 4. Pain Intensity: 6-7 W/ACTIVITY 5. Fall Risk: Dizziness: N Needs help standing or walking: N Fallen in the last 3 months: N Fall risk comments: 6. Patient on Blood Thinner: None 7. History of Hypertension: N 8. Opioid Therapy greater than 6 weeks: N Opiate Contract Signed: 9. Risk Assessment Tool Provided: LOW 10. Functional Assessment Tool: 11. Recreational Drug Use: Never Drug Type: Tobacco Use: Never Smoker Tobacco Type: Amount or Packs/day: How Many Years: Alcohol Use: Yes Frequency: Quant:
== END ==
LOC: PAIN 08:30
PROVIDERS: ATTEND Anesthesiology Pain Medicine
DX: M47.816 Spondylosis without myelopathy or radiculopathy, lumbar region (principal); G89.29 Other chronic pain; F11.20 Opioid dependence, uncomplicated; M79.10 Myalgia, unspecified site

== ENCOUNTER → 2021-01-20 | Outpatient (CLI) | payer OTHER ==
[~2021-01-20] VITALS: Ht 182.9 cm; Wt 102.6 kg
[2021-01-20 11:09] VITALS: BP 120/77
--- NOTE | 2021-01-20 11:13 | NUR ---
Pain Clinic Assessment: 1. History of Osteoarthritis: BACK History of Rheumatoid Arthritis: Not Applicable 2. Height: 6 ft. 0 in. 182.9 cm. Weight: 226.2 lb. oz. 102.604 kg. Patient's BMI: 30.7 3. Vital Signs: BP: 120/77 Pulse: 56 Resp: 16 Temp: 02 Sat: 100 ECG Mon: 4. Pain Intensity: 6-7 W/ACTIVITY 5. Fall Risk: Dizziness: N Needs help standing or walking: N Fallen in the last 3 months: N Fall risk comments: 6. Patient on Blood Thinner: None 7. History of Hypertension: N 8. Opioid Therapy greater than 6 weeks: N Opiate Contract Signed: 9. Risk Assessment Tool Provided: LOW 10. Functional Assessment Tool: 11. Recreational Drug Use: Never Drug Type: Tobacco Use: Never Smoker Tobacco Type: Amount or Packs/day: How Many Years: Alcohol Use: Yes Frequency: Quant:
--- NOTE | 2021-01-21 07:35 | HPC ---
[facility] [place] [address] PAIN MANAGEMENT CONSULTATION Name: CARROL CONNORS Room #: REG DIEGO Mahamed#: [id number] Admission: 01/20/21 Attend Phys: Richardson Hollingsworth DO Discharge: Date of : 62 Report #: [id number] THIS REPORT FOR: cc: Josesito Clement MD,Richardson Storey MD, DO ~ DOC #: [id number] cc: MD Richardson Carrillo DO DATE OF SERVICE: 01/20/2021 DATE OF SERVICE: 01/20/2021 REFERRING PHYSICIAN: Dr. Clement CHIEF COMPLAINT: Low back pain, left buttock pain. HISTORY OF PRESENT ILLNESS: As you know, the patient is a very pleasant 60-year-old male returning in followup visit with recurrence of low back pain, left buttock pain. He reports he was completely resolved with pain after radiofrequency lesioning of the medial branch nerves of the lumbar spine. Unfortunately, his symptoms recurred. We saw the patient in followup visit on 01/13/2021 and established today's appointment after receiving the authorization to undergo medial branch block on the left side to address the L4-L5 and L5-S1 medial branch nerves that remained. As you are aware, the patient has had a significant fusion of the lumbar spine, which left him with increasing arthritic changes of the L4-L5, L5-S1 levels. He returns to undergo medial branch blocks to address the L4 and L5 medial branch nerves on the left side. ALLERGIES: No known drug allergies. CURRENT MEDICATIONS: Simvastatin, venlafaxine, lisinopril, hydrochlorothiazide, aripiprazole, diclofenac, and Xarelto. SOCIAL HISTORY: The patient denies tobacco, alcohol or IV or illicit drug use. He is not receiving workmen's compensation, unaccompanied today. IMAGING: No new imaging available. PHYSICAL EXAMINATION: VITAL SIGNS: Blood pressure 120/77, pulse 56, respiratory rate 16 unlabored. The patient is 100% on room air, height 6 feet tall, weight 226.2 pounds, BMI calculated 30.7. GENERAL: Well-developed, well-nourished, well-hydrated 60-year-old male appearing stated age, pain is rated today at around 6-7/10 with activity. HEENT: Normocephalic, atraumatic. Pupils [place] [address] PAIN MANAGEMENT CONSULTATION Name: CARROL CONNORS Room #: REG CLI [facility]#: [id number] Admission: 01/20/21 Attend Phys: Richardson Hollingsworth DO Discharge: Date of : 62 Report #: [id number] wearing a mask in compliance with COVID-19 regulations. EXTREMITIES: Show no clubbing, no cyanosis, no edema. MUSCULOSKELETAL: Seated straight leg raising negative. Supine straight leg raising negative. Fabere's test is negative. Modified Gaenslen's positive for axial low back pain. Well healed surgical scars of the lumbar spine. ASSESSMENT: 1. Lumbosacral spondylosis without radiculopathy. 2. Facet arthropathy, lumbar spine. 3. Recurrent low back pain. 4. Chronic intractable pain. PLAN: 1. The patient returns today in followup visit requesting to undergo medial branch blocks on the left side to address recurrent low back and left buttock pain. The patient has been advised the risks and benefits of the procedure, states understood and wished to proceed. 2. No medication changes made at today's visit. The patient will continue current medical therapy as prior prescribed. 3. Plan to see the patient back in followup visit in 1 week. At that time, review the efficacy of today's medial branch blocks. If these are once again successful at alleviating symptoms. We will see him back to undergo radiofrequency lesioning of the medial branch nerves. PROCEDURE NOTE DESCRIPTION OF PROCEDURE: Left L4-L5 lumbar medial branch nerve blocks under fluoroscopic guidance. This is the first of 2 diagnostic medial branch blocks on the left side that the patient is undergoing. After obtaining written consent, the patient was taken back to the fluoroscopy suite and placed in a prone position on the fluoroscopy table with a pillow under the abdomen to decrease the lumbar lordosis. The skin overlying the lumbosacral area was prepped and draped in an aseptic fashion. The L5 transverse process corresponding the L4 medial branch nerve on the left side was visualized under AP fluoroscopy. The skin and subcutaneous tissue overlying the target sites of injection were anesthetized using 2 mL of 1% lidocaine. A 22-gauge 3.5 inch spinal needle with a bent tip was advanced under fluoroscopic guidance using a superior to inferior and lateral to medial approach to the dorsal, superior and medial aspect of the base of the transverse processes. The needles were then directed ventral, medial and caudad to reach the target locations. An oblique view facilitated needle placement with properly positioned needles in the middle of the "eye" of the Merlin dog for the [facility] [address] [place] [address] PAIN MANAGEMENT CONSULTATION Name: CARROL CONNORS Room #: REG CLJanelle Irby#: [id number] Admission: 01/20/21 Attend Phys: Richardson Hollingsworth DO Discharge: Date of : 62 Report #: [id number] branch blocks. At each site the needle(s) rested on periosteum. After negative aspiration for heme or CSF, 0 mL of Omnipaque dye was injected at each site under live fluoroscopy, demonstrating absence of vascular uptake. After negative aspiration for heme or CSF, 1 mL of bupivacaine 0.5 percent was slowly injected at each site to avoid forcing the solution away from the target points. The needle were then removed. The L5 dorsal ramus block on the left side was performed using a slightly oblique approach under fluoroscopic guidance, placing the needle within the groove between the sacral site and the superior articular process of S1. The needle rested on periosteum. After negative aspiration for heme or CSF, 0 mL of Omnipaque dye was injected at under live fluoroscopy, demonstrating absence of vascular uptake. After negative aspiration for heme or CSF, 1 mL of bupivacaine 0.5 percent was slowly injected to avoid forcing the solution away from the target point. The needle was then removed. Sterile bandages were placed over the injection site. There were no apparent complications. The patient tolerated the procedure well and was carefully escorted to the recovery room in stable condition. The VAS was 6/7 before the procedure and 0/7 10 minutes after the procedure. After meeting discharge criteria, the patient was discharged home. Richardson Hollingsworth DO JEJ/IVETTE/UPE <ELECTRONICALLY SIGNED> By: Richardson Hollingsworth DO 01/21/21 0735 [id number] Richardson Hollingsworth DO /janice
== END | disposition home or self-care (01) ==
LOC: PAIN 09:22
PROVIDERS: ATTEND Anesthesiology Pain Medicine
DX: M47.817 Spondylosis without myelopathy or radiculopathy, lumbosacral region (principal); M47.816 Spondylosis without myelopathy or radiculopathy, lumbar region; M54.5 Low back pain; G89.29 Other chronic pain; Z98.890 Other specified postprocedural states; Z79.899 Other long term (current) drug therapy

== ENCOUNTER → 2021-01-27 | Outpatient (CLI) | payer OTHER ==
[~2021-01-27] VITALS: Ht 182.9 cm; Wt 102.5 kg
[2021-01-27 09:40] VITALS: BP 128/83
--- NOTE | 2021-01-27 09:41 | NUR ---
Pain Clinic Assessment: 1. History of Osteoarthritis: BACK History of Rheumatoid Arthritis: Not Applicable 2. Height: 6 ft. in. 182.9 cm. Weight: 226.0 lb. oz. 102.513 kg. Patient's BMI: 30.6 3. Vital Signs: BP: 128/83 Pulse: 59 Resp: 18 Temp: 02 Sat: 100 ECG Mon: 4. Pain Intensity: 6 5. Fall Risk: Dizziness: N Needs help standing or walking: N Fallen in the last 3 months: N Fall risk comments: 6. Patient on Blood Thinner: None 7. History of Hypertension: N 8. Opioid Therapy greater than 6 weeks: N Opiate Contract Signed: 9. Risk Assessment Tool Provided: LOW 10. Functional Assessment Tool: 11. Recreational Drug Use: Never Drug Type: Tobacco Use: Never Smoker Tobacco Type: Amount or Packs/day: How Many Years: Alcohol Use: Yes Frequency: Quant:
--- NOTE | 2021-01-28 07:59 | HPC ---
[facility] [place] [address] PAIN MANAGEMENT CONSULTATION Name: CARROL CONNORS Room #: REG DIEGO Mahamed#: [id number] Admission: 01/27/21 Attend Phys: Richardson Hollingsworth DO Discharge: Date of : 62 Report #: [id number] THIS REPORT FOR: cc: Josesito Clement MD, Randy MD Johnson, James E. DO ~ DOC #: [id number] DATE OF SERVICE: 01/27/2021 DATE OF SERVICE: 01/27/2021. CHIEF COMPLAINT: Low back pain, left buttock and posterolateral thigh pain. HISTORY OF PRESENT ILLNESS: As you know, the patient is a pleasant 60-year-old male returning in followup visit with ongoing low back pain, left lower extremity pain with paresthesias. At the last visit, the patient requested and we performed facet medial branch nerve blocks as he has seen an improvement in symptoms with these injections in the past. Unfortunately, the symptoms he is experiencing are not related to the facet joints, but appears to be more related to lumbar radiculopathy. He has pain that now runs from the low back to the left buttock and down the leg all the way to the foot in classic dermatomal distribution. This was not the case at our last visit when he was experiencing just strictly axial back pain and left buttock pain. He returns today stating that the medial branch blocks provided no significant benefit. He returns today stating that his pain is a level of 6/10. The distribution has changed completely and the pain he is experiencing is described as numbness shooting electrical like consistent with a lumbar radiculopathy. He returns today to discuss treatment options. ALLERGIES: No known drug allergies. CURRENT MEDICATIONS: Simvastatin, venlafaxine, lisinopril, hydrochlorothiazide, aripiprazole, diclofenac and Xarelto. SOCIAL HISTORY: The patient denies tobacco, alcohol or IV or illicit drug use. He is unaccompanied today. IMAGING: No new imaging available. PHYSICAL EXAMINATION: VITAL SIGNS: Blood pressure 128/83, pulse 59, respiratory rate 18 and unlabored. The patient is 100% on room air. Height 6 feet tall, weight 226 pounds, BMI calculated 30.6. GENERAL: Well-developed, well-nourished, well-hydrated 60-year-old male appearing stated age. Pain is rated today at 02/26. [place] [address] PAIN MANAGEMENT CONSULTATION Name: CARROL CONNORS Room #: REG DIEGO GarciaJocelineAshuJoceline#: [id number] Admission: 01/27/21 Attend Phys: Richardson Hollingsworth DO Discharge: Date of : 62 Report #: [id number] HEENT: Normocephalic, atraumatic. Pupils equal, round and responsive. The patient is wearing a mask in compliance with COVID-19 regulations. EXTREMITIES: Show no clubbing, no cyanosis. No appreciable edema. MUSCULOSKELETAL: Seated straight leg raising is negative. Supine straight leg raising is now positive on the left with radiation down to the foot. Fabere's test is negative. Modified Gaenslen continues to cause axial back pain. Well healed surgical scars over the lumbar region. Deep tendon reflexes are symmetrical at patella and Achilles, downgoing Babinski's. ASSESSMENT: 1. Symptomatic lumbar radiculopathy. 2. Lumbosacral spondylosis with radiculopathy. 3. Facet arthropathy of lumbar spine. 4. Chronic intractable pain. PLAN: 1. The patient returns today in followup visit with pain that now radiates from the low back to the buttock and down the leg to the foot. He describes the pain more as a numbness, burning, and electrical-like sensation with symptoms that are unresolved with current treatment. The patient underwent medial branch blocks at the last visit to address the facet joint on the left side as he had noted improvement in symptoms in the past, but this did not provide improvement and we would not recommend moving forward with radiofrequency lesioning. The distribution of symptoms, the patient is experiencing today fits more with a lumbar radiculopathy. I am concerned that there have been some changes at the L5-S1 level that may have led to progressive left lower extremity symptoms. We discussed this with the patient today. He is requesting to undergo lumbar epidural injection. If he is not seeing improvement, we would then discuss imaging and possible surgical options. The patient is agreeable with this plan. 2. Patient has been consented and we will perform a lumbar epidural injection under fluoroscopic guidance to address lumbar radicular symptoms involving the low back, left lower extremity. The patient was advised the risks and benefits of the procedure, states he understood, and wished to proceed. 3. No medication changes made at today's visit. The patient has been on neuropathic pain medication in the past, but was unable to tolerate the medication due to side effects. He does not wish to initiate medication if at all possible. 4. Patient was given information about spinal cord stimulator as a possible treatment option. He will review this information at his earliest convenience. If he is interested and looking forward to doing these type of treatments, he will contact our clinic. 5. We plan to see the patient back in followup visit on an as needed basis for the next in the series of lumbar epidural injections. We are hopeful the patient will see good benefit with the injection provided today. PROCEDURE NOTE [facility] [address] [place] [address] PAIN MANAGEMENT CONSULTATION Name: DORYCARROL Room #: REG DIEGO Irby#: [id number] Admission: 01/27/21 Attend Phys: Richardson Hollingsworth DO Discharge: Date of : 62 Report #: [id number] DESCRIPTION OF PROCEDURE: L5-S1 left paramedian epidural steroid injection under fluoroscopic guidance. After obtaining written consent, the patient was taken back to fluoroscopy suite, placed in prone position with pillow under abdomen to decrease lumbar lordosis. Skin overlying lumbosacral area prepped and draped in aseptic fashion. The L5-S1 vertebral interspace identified by AP fluoroscopy. Skin and subcutaneous tissue overlying target site injection anesthetized with 3 mL of 1% lidocaine. A 20 gauge 3-1/2 inch Tuohy needle advanced under fluoroscopic guidance towards the epidural space using a left paramedian approach. Epidural space identified using loss of resistance to air technique. After negative aspiration for heme or cerebrospinal fluid, 1 mL of Omnipaque injected. Lumbar epidurogram confirmed using both AP and lateral fluoroscopy. After negative aspiration for heme or cerebrospinal fluid, 5 mL solution containing 2 mL 40 mg per mL 80 mg total triamcinolone along with 3 mL of lidocaine, 1% injected slowly. Needle retracted senior care flushed with 1 mL of 1% lidocaine, then removed. Sterile bandage placed over injection site. No new motor deficits present in the lower extremities, following procedure. OPERATIVE DESCRIPTION: Patient tolerated the procedure well, carefully escorted to recovery room in stable condition. No apparent complications. After meeting discharge criteria, the patient discharged home. Richardson Hollingsworth DO JEJ/RAH <ELECTRONICALLY SIGNED> By: Richardson Hollingsworth DO 01/28/21 0759 [id number] Richardson Hollingsworth DO /nt
== END | disposition home or self-care (01) ==
LOC: PAIN 06:58
PROVIDERS: ATTEND Anesthesiology Pain Medicine
DX: M47.27 Other spondylosis with radiculopathy, lumbosacral region (principal); M47.26 Other spondylosis with radiculopathy, lumbar region; G89.29 Other chronic pain; Z98.890 Other specified postprocedural states; Z79.899 Other long term (current) drug therapy; Z79.01 Long term (current) use of anticoagulants